=== PATIENT | female | born 1965 | race Caucasian/White ===

== ENCOUNTER 2016-07-24 09:38 | Emergency (ER) ==
[2016-07-24 09:48] VITALS: BP 132/74
--- NOTE | 2016-07-24 10:25 | PROVIDER DOCUMENTATION ---
HPI-EENT General - General Chief Complaint: Cold Symptoms Stated Complaint: N/V/D Time Seen by Provider: 07/24/16 10:02 Source: patient Allergies/Adverse Reactions: Patient Allergies Allergy/AdvReac Type Severity Reaction Status Date / Time Penicillins Allergy Mild RASH Verified 07/24/16 10:19 Home Medications: Home Medication List Medication Instructions Recorded Confirmed Last Taken Type Albuterol Sulfate [Proair Hfa] 8.5 gm IH DAILY 05/11/12 07/24/16 08/06/14 19:00 History LISINOpril [Prinivil] 10 mg PO DAILY 05/11/12 07/24/16 03/19/16 06:00 History Levothyroxine [Synthroid] 125 microgm PO DAILY 05/11/12 07/24/16 03/19/16 06:00 History Tiotropium [place] Inhaler 1 cap IH DAILY 12/11/13 07/24/16 03/19/16 06:00 History [Spiriva] Metformin [Glucophage] 500 mg PO BID CC 02/22/14 07/24/16 03/19/16 06:00 History SIMVAstatin [Zocor] 40 mg PO QHS 02/22/14 07/24/16 03/18/16 History Fluticasone/Salmeterol [Advair 1 each IH DAILY 08/08/14 07/24/16 03/19/16 06:00 History 500-50 Diskus] Roflumilast [Daliresp] 500 microgm PO DAILY 10/25/14 07/24/16 03/19/16 06:00 History Tamoxifen [Nolvadex] 20 mg PO DAILY 10/25/14 07/24/16 03/19/16 06:00 History Docusate Sodium [Colace] 100 mg PO BID #60 capsule 10/31/14 07/24/16 03/19/16 06 :00 Rx Ciprofloxacin HCl [Cipro] 500 mg PO BID #20 tablet 03/19/16 07/24/16 Unknown Rx Hydrocodone/Acetaminophen [Corry 1 each PO TID #10 tablet 03/19/16 07/24/16 Unknown Rx 5-325 Tablet] Azithromycin [Zithromax Z-Joshua] 250 mg PO DIRECTED #1 pkg 07/24/16 Unknown Rx Hydrocortisone 1% Cream 1 applicatn TOP BID #1 tube 07/24/16 Unknown Rx Methylprednisolone [Medrol Dosepak] 4 mg PO DIRECTED #1 package 07/24/16 Unknown Rx - History of Present Illness-EENT General Nature of Presenting Problem: This pt presents to ED with c/o nasal congestion, chest tightness, body aches, and non-productive cough x3 days. Also reports she has vomited x1, and had diarrhea 3 episodes of diarrhea over the course of the 3 days. Denies any abdominal pain, fever. She is currently not nauseated. No fever or chills reported. No other issues or complaints. Pt is also complaining of a rash on her left side and leg that has been present for 1-2 weeks. No other issues or complaints. EENT Location: reports: facial Quality of Pain: reports: aching Severity: reports: mild Onset/Duration: reports: 3 days ago Timing: reports: still present Prearrival Treatment: Initiated no prearrival treatment Associated Symptoms: reports: cough, nasal congestion/drainage, sinus infection Similar Symptoms Previously?: No Recently seen or treated by another doctor?: No Review of Systems - Adult - REVIEW OF SYSTEMS - ADULT Constitutional: reports: fatique. denies: chills, fever Eyes: reports: no symptoms reported. denies: discharge, dry eyes Ears, Nose, Mouth & Throat: reports: sinus problem, throat pain. denies: ear discharge, ear pain Cardiovascular: reports: no symptoms reported. denies: chest pain, edema Respiratory: reports: cough. denies: chronic cough, pleurisy, shortness of breath Gastrointestinal: reports: no symptoms reported. denies: abdominal pain, hematemesis Genitourinary: reports: no symptoms reported. denies: dysuria, discharge Musculoskeletal: reports: no symptoms reported. denies: bone pain, back pain Integumentary: reports: rash. denies: hives, hair loss, itching Neurological: reports: no symptoms reported. denies: ataxia, dizziness/vertigo Psychiatric: reports: no symptoms reported. denies: anxiety, anti-depressant use Endocrine: reports: no symptoms reported Hematologic/Lymphatic: reports: no symptoms reported Allergic/Immunologic: reports: no symptoms reported All Other Systems: Reviewed and Negative Past History - Adult - PAST MEDICAL HISTORY-ADULT Review of Records: reports: Old Records Reviewed, Nursing Assessment Review, Medications Reviewed, Social history reviewed & non-contributory. Major Childhood Illnesses: reports: denies history Cardiovascular: reports: denies history Respiratory: reports: bronchitis, COPD Gastrointestinal: reports: denies history Obstetrical/Gynecological: reports: other (breast ca/left mastectomy 09/on tamoxifen) Genitourinary: reports: denies history Musculoskeletal: reports: denies history Neurological: reports: denies history Psychiatric: reports: denies history Endocrine/Immune: reports: denies history Other Conditions: reports: denies history - PRIOR SURGERIES/PROCEDURES Surgical/Procedure History: reports: other (left mastectomy) - PRIOR HOSPITALIZATIONS Prior Hospitalizations: reports: none - IMMUNIZATION STATUS Childhood Immunizations: See Nurse Assessment Flu Vaccine: See Nurse Assessment - FAMILY HISTORY Family History: reviewed, not pertinent, diabetes Physical Exam- EENT - Physical Exam EENT Initial Vital Signs Reviewed: Yes General Appearance: appears well, alert, no apparent distress Eye Exam: bilateral eye: normal inspection, PERRL, EOMI Ear Exam: bilateral ear: auricle normal, canal normal, TM normal Nasal Exam: normal inspection Throat Exam: normal mouth inspection, pharynx normal. negative: pharynx tenderness, tonsillar exudate, tonsillar swelling Neck: non-tender, full range of motion, supple, normal inspection. negative: limited range of motion, lymphadenopathy, meningismus Respiratory: chest non-tender, lungs clear, no pleuratic chest pain, no respiratory distress, no accessory muscle use, rhonchi, wheezing (minimal, posterior bases). negative: respiratory distress, decreased breath sounds, accessory muscle use, crackles, rales, stridor, decreased rate, increased rate Cardiovascular: normal peripheral pulses, regular rate, rhythm, no edema, no gallop, no JVD, no murmur Abdominal Exam: normal bowel sounds, non tender, soft Back Exam: normal inspection, no CVA tenderness, no vertebral tenderness Extremity: normal range of motion, non-tender, normal gait, normal inspection Integumentary: normal turgor, warm/dry, rash (mild, left side and leg; appears to be) Neurologic: grossly normal, no motor/sensory deficits Psych/Mental Status: normal mood/affect, normal thought content, normal thought process, oriented x 3 Progress - PLAN OF CARE/RESULTS Progress/Plan/Lab Results: Orders Category Date Time Status CHEST-2 VIEWS [RAD] Stat Exams 03/10/17 10:28 Taken Flu Swab [INFLUENZA SCREEN A/B] Stat Lab 07/24/16 09:51 Completed Albuterol 2.5MG/Ipratrop 0.5MG [Duoneb (A & A)] Med 07/24/16 10:28 Discontinued 3 ml INH NOW ONE Aerosol Treatments Routine Oth 07/24/16 10:28 Completed Aerosol Treatments Stat Oth 07/24/16 10:28 Completed Vital Signs Temp Pulse Resp BP Pulse Ox 07/24/16 10:52 73 16 93 L 07/24/16 09:45 97.7 F 74 18 132/74 99 Penicillins Allergy (Mild, Verified 07/24/16 10:19) RASH Albuterol Sulfate [Proair Hfa] 8.5 gm IH DAILY 05/11/12 LISINOpril [Prinivil] 10 mg PO DAILY 05/11/12 Levothyroxine [Synthroid] 125 microgm PO DAILY 05/11/12 Tiotropium [place] Inhaler [Spiriva] 1 cap IH DAILY 12/11/13 Metformin [Glucophage] 500 mg PO BID CC 02/22/14 SIMVAstatin [Zocor] 40 mg PO QHS 02/22/14 Fluticasone/Salmeterol [Advair 500-50 Diskus] 1 each IH DAILY 08/08/14 Roflumilast [Daliresp] 500 microgm PO DAILY 10/25/14 Tamoxifen [Nolvadex] 20 mg PO DAILY 10/25/14 Docusate Sodium [Colace] 100 mg PO BID #60 capsule 10/31/14 Ciprofloxacin HCl [Cipro] 500 mg PO BID #20 tablet 03/19/16 Hydrocodone/Acetaminophen [Corry 5-325 Tablet] 1 each PO TID #10 tablet Departure - Departure Time of Disposition Order: 11:13 DIAGNOSIS: Bronchitis, Rash and nonspecific skin eruption Disposition: HOME 01 Certified Medical Emergency: Urgent Condition: Good Additional Instructions: Take medication as prescribed. Follow up with your primary care provider and paster supervisor. ED Follow Up Instructions: You have been treated by a care provider in the Emergency Department. These instructions are being provided to you so you can have an understanding of how to care for yourself upon discharge. Upon discharge from the Emergency Department, you are responsible for making arrangements for follow-up care by a physician of your choice. Take all prescribed medications as directed. Return to the Emergency Department immediately for any new or worsening symptoms. You may call the Physician Referral phone number at [phone] to obtain a list of Physicians who are taking new patients. Prescriptions: Hydrocortisone 1% Cream 1 applicatn TOP BID #1 tube Methylprednisolone [Medrol Dosepak] 4 mg PO DIRECTED #1 package Azithromycin [Zithromax Z-Joshua] 250 mg PO DIRECTED #1 pkg Attestation - Physician/ JACQUES Attestation Patient care was provided by Advanced Practice Provider:: Yes Advanced Practice Provider:: Baldemar Xiao Advanced Practice Provider documentation review:: The Mid-level provider documentation, treatment plan and medical decision making was reviewed by the physician who agrees with all treatment and medical decision making by the MLP.
[2016-07-24] MEDS ORDERED: DUONEB (A & A) INH ONE (10:28)
--- NOTE | 2016-07-24 11:21 | Diag Imaging Result Document ---
PROCEDURE NAME: CHEST-2 VIEWS - 07/24/2016 TWO VIEWS OF THE CHEST: FINDINGS: There are surgical clips over the left chest. The appearance of the chest has not changed significantly since 08/07/2014. No focal pulmonary opacities are present. IMPRESSION: Stable chest.
== END 2016-07-24 11:30 | disposition home or self-care (01) ==
LOC: ED 09:38
DX: J40 Bronchitis, not specified as acute or chronic (principal); R21 Rash and other nonspecific skin eruption; R09.81 Nasal congestion; R07.89 Other chest pain; R05 Cough; R11.10 Vomiting, unspecified; R19.7 Diarrhea, unspecified; R53.83 Other fatigue; J02.9 Acute pharyngitis, unspecified; R52 Pain, unspecified; R06.2 Wheezing; J44.9 Chronic obstructive pulmonary disease, unspecified; Z79.899 Other long term (current) drug therapy; Z85.3 Personal history of malignant neoplasm of breast; Z90.12 Acquired absence of left breast and nipple
CPT/HCPCS: 71020; 87804; 94640; 99283

== ENCOUNTER 2018-06-06 10:10 | Inpatient (IN) ==
[2018-06-06] MEDS ORDERED: SOLU-MEDROL IV ONE (10:57)
[2018-06-06] MEDS ORDERED: ROCEPHIN 1 GM in NS 50 ML IV ONE (10:57)
[2018-06-06] MEDS: DUONEB (A & A) INH PRN ×3 (11:00→12:47)
--- NOTE | 2018-06-06 11:35 | Diag Imaging Result Doc PS360 ---
EXAM: CHEST-PORTABLE HISTORY: cough TECHNIQUE: Portable chest COMPARISON: 05/30/2018 FINDINGS: The lungs are well expanded. The heart is not enlarged. The vessels are not distended. There are mild increased markings in the lower lungs. No consolidation. No effusion identified. IMPRESSION: Small basilar infiltrates most pronounced in the medial right lung. Electronically signed by Jose Ocasio 06/06/2018 11:33 AM
[2018-06-06 11:41] LABS: BE 1.3 mmoll (-3.0-3.0); BLOOD TYPE ARTERIAL; HCO3-(ACT) 25.7 mmoll (20.0-26.0); O2(CT) 19.2 mL/dL (15.0-23.0); PCO2(98.6) 36 mmHg (35-45); PO2(98.6) 56 mmHg (60-100); SAMPLE BLOOD; THB 15.5 g/dL (11.5-17.4); pH(98.6) 7.45 (7.35-7.45)
[2018-06-06 11:50] LABS: BASO# 0.08 X1000 (0.0-0.2); BASO% 0.7 % (0.0-0.8); EOS# 0.02 X1000 (0.0-0.7); EOS% 0.2 % (0.0-10.0); HEMATOCRIT 42.8 % (37.0-47.0); HEMOGLOBIN 14.1 g/dL (12.0-16.0); IMM GRAN# 0.04 X1000 (0.0-0.04); IMM GRAN% 0.3 % (0.0-0.5); LYMPH# 3.19 X1000 (1.2-3.4); LYMPH% 27.5 % (20.5-51.1); MCH 30.9 PG (27-31); MCHC 32.9 g/dL (33-37); MCV 93.9 FL (81-99); MONO# 1.64 X1000 (0.11-0.59); MONO% 14.2 % (1.7-9.3); MPV 11.3 FL (7.4-10.4); NEUT# 6.62 X1000 (1.4-6.5); NEUT% 57.1 % (42.2-75.2); PLT 326 X1000 (130-400); RBC 4.56 XMIL (4.2-5.4); RDW 14.2 % (11.5-14.5); WBC 11.59 X1000 (4.8-10.8)
[2018-06-06 11:51] LABS: AGAP 11; ALBUMIN 3.7 g/dL (3.5-5.0); ALKALINE PHOSPHATASE 75 U/L (32-104); BUN 18 mg/dL (8-22); CALCIUM 8.8 mg/dL (8.8-10.2); CHLORIDE 106 mmol/L (98-107); COSMO 281; CREATININE 0.7 mg/dL (0.5-0.9); ESTIMATED GFR > 60; GLUCOSE 68 mg/dL (70-104); GOT 21 U/L (10-30); GPT 14 U/L (10-36); POTASSIUM 3.9 mmol/L (3.5-5.1); SODIUM 141 mmol/L (136-145); TCO2 25 mmol/L (25-35); TOTAL PROTEIN 7.8 g/dL (6.3-8.3)
[2018-06-06 11:52] LABS: ANISOCYTOSIS 1+; LYMPHS 36 % (21-51); MONO 9 % (1-9); SEGS 55 % (42-75)
[2018-06-06 12:08] LABS: O2HB 88.4 % (95.0-99.0)
[2018-06-06 12:12] LABS: MODALITY ROOM AIR
[2018-06-06 12:13] LABS: ALLEN TEST YES
[2018-06-06] MEDS: DUONEB (A & A) INH SCH ×3 (15:52→23:10)
[2018-06-06] MEDS: ZITHROMAX PO SCH (16:55)
[2018-06-06] MEDS: HUMALOG (PARKWAY) SUBQ SCH ×2 (16:57→21:48)
--- NOTE | 2018-06-06 17:20 | HISTORY AND PHYSICAL ---
CHIEF COMPLAINT: Shortness of breath x 1 week. HISTORY OF PRESENT ILLNESS: This is a 52-year-old female with a history of COPD, diabetes mellitus, hypertension, who presents to the emergency room complaining of 1 week of increasing shortness of breath, generalized body aches, chest pain on coughing. She was evaluated by her primary care physician, given Biaxin and steroids with only increasing symptoms. Therefore, she presents for further evaluation. She denied any syncope or dizziness, any palpitations, any fever, any nausea, vomiting, diarrhea, constipation. PAST MEDICAL HISTORY: 1. Left breast cancer, currently on tamoxifen. 2. COPD. 3. Diabetes mellitus. 4. Hyperlipidemia. 5. Hypertension. 6. Obstructive sleep apnea. 7. Hypothyroid. PAST SURGICAL HISTORY: Hysterectomy, left mastectomy, partial hysterectomy and bladder suspension. SOCIAL HISTORY: She smokes a pack a day. She denies alcohol or illicit drug use. ALLERGIES: Penicillin, which causes a rash. HOME MEDICATIONS: A list will be obtained by the nursing staff and restarted as is appropriate. REVIEW OF SYSTEMS: Discussed with the patient with pertinent positives stated in the HPI. She denied any headache, syncope, dizziness, any fever or chills, any palpitations, any hemoptysis, any nausea, vomiting, diarrhea, constipation, black or bloody vomitus or stools, hematuria, dysuria, frequency, urgency. PHYSICAL EXAMINATION: GENERAL: This is a 52-year-old female who is sitting up in the bed in no distress. VITAL SIGNS: Blood pressure is 136/69, with a heart rate of 92, respirations are 22, temperature is 98.1 with O2 sats that are 96% on room air. HEENT: Eyes: Pupils are equal, round, react to light. EOMs are intact. Sclerae are anicteric. Mucous membranes are moist. NECK: Supple, with trachea midline. CARDIOVASCULAR: Regular rate and rhythm. S1 and S2 appreciated. No murmur. No lower extremity edema. Calves are nontender. Peripheral pulses are palpable x 4 extremities. PULMONARY: Breath sounds with wheezes scattered throughout. She does have some rhonchi that only partially clear to cough. CHEST: Chest rises and falls symmetrically with respiration. Chest wall is nontender to palpation. GASTROINTESTINAL: Abdomen is soft, nontender, nondistended, with bowel sounds in all 4 quadrants. GENITOURINARY: She has no CVA nor suprapubic tenderness. SKIN: Warm and dry with no rashes or lesions noted. NEUROLOGIC: She is alert and oriented x 3. LABORATORY: WBC is 11.5, with hemoglobin 14.1, hematocrit 42.8, platelets of 326,000. Sodium 141, potassium 3.9, BUN 18, creatinine 0.7 with a glucose of 68. ABGs: PH is 7.45, with a pCO2 of 36, PO2 of 56 and a bicarb of 25.7. Oxyhemoglobin is 88.4. These are on room air. Chest x-ray revealed basilar infiltrates most pronounced in the medial right lung. ASSESSMENT AND PLAN: 1. Chronic obstructive pulmonary disease, acute exacerbation. 2. Pneumonia. 3. Leukocytosis secondary to #2. 4. Diabetes mellitus. 5. Hyperlipidemia. 6. Hypertension. 7. Hypothyroid. 8. Sleep apnea. 9. History of left breast cancer, on tamoxifen. 10. Hypoxemia. PLAN: The patient has been admitted to the Med/Surg floor, placed on telemetry. We will continue with supplemental oxygen per protocol, giving DuoNebs q.4 hours with q.2 hours p.r.n. with steroids to taper. Blood cultures were drawn in the emergency room. She was given Rocephin. We will continue Rocephin and azithromycin and any further antibiotics will be culture driven. We will identify her home medications and continue these as appropriate. Repeat a CBC and CMP in the morning. We will obtain a TSH. She will be placed on a diabetic diet with fingerstick blood sugars and sliding scale insulin. If the patient wears CPAP or BiPAP, we will encourage her to bring this in for use. For DVT prophylaxis will use Lovenox and GI prophylaxis Prilosec. Further treatments pending hospital course. Dictated by LUIS Gmóez for Gloria Vergara MD This chart was documented by, LUIS Gómez and accurately reflects the services performed, treatment plan and medical decisions as attested by the providers signature Gloria Vergara MD. cc: LUIS Gómez MD
--- NOTE | 2018-06-06 18:02 | HISTORY AND PHYSICAL ---
ADDENDUM TO HISTORY AND PHYSICAL: This patient was seen by me face to face and I fully agree with the assessment and plan of Nurse Practitioner Juliet Elena. This is a 52- year-old female who presented to the emergency department with dyspnea and bilateral wheezing. She has been a chronic tobacco smoker and was found to have diffuse bilateral wheezing that was not responding to the breathing treatments. She has her blood gases done over here that showed PO2 of 56 on room air. She was diagnosed as having acute hypoxemic respiratory failure secondary to acute COPD exacerbation. She also has a chest x-ray done at the emergency room that showed small basilar infiltrates which are more pronounced in the medial right lung. This could be secondary to atelectasis, but we cannot rule out pneumonia at this point. She will therefore be treated with IV antibiotics, including azithromycin and ceftriaxone. She will also get methylprednisolone IV along with albuterol and Atrovent nebulization treatments. She has history of diabetes and therefore we will treat her with lispro insulin as per sliding scale. Furthermore, she has chronic medical conditions including hypothyroidism and dyslipidemia, for which she will take levothyroxine and rosuvastatin as prescribed prior to this admission. We will follow hospital course. cc: Gloria Vergara MD MTDEdvin
[2018-06-06] MEDS: SOLU-MEDROL IV SCH (21:47)
[2018-06-07] MEDS: DUONEB (A & A) INH SCH ×6 (03:34→23:03)
[2018-06-07] MEDS: SOLU-MEDROL IV SCH ×4 (04:27→22:10)
[2018-06-07] MEDS: SYNTHROID PO SCH ×2 (06:13)
[2018-06-07] MEDS: PRILOSEC PO SCH (06:13)
[2018-06-07] MEDS: HUMALOG (PARKWAY) SUBQ SCH (06:14)
[2018-06-07 06:48] LABS: HEMATOCRIT 40.6 % (37.0-47.0); HEMOGLOBIN 13.4 g/dL (12.0-16.0); MCH 30.9 PG (27-31); MCV 93.8 FL (81-99); MPV 11.1 FL (7.4-10.4); RBC 4.33 XMIL (4.2-5.4); RDW 14.2 % (11.5-14.5); WBC 15.96 X1000 (4.8-10.8)
[2018-06-07] MEDS: HUMALOG DOSE (PARKWAY) SUBQ SCH ×4 (07:11→21:44)
[2018-06-07 07:45] LABS: AGAP 14; ALBUMIN 3.7 g/dL (3.5-5.0); ALKALINE PHOSPHATASE 70 U/L (32-104); BUN 17 mg/dL (8-22); CALCIUM 9.3 mg/dL (8.8-10.2); CHLORIDE 105 mmol/L (98-107); COSMO 286; CREATININE 0.7 mg/dL (0.5-0.9); ESTIMATED GFR > 60; GLUCOSE 165 mg/dL (70-104); GOT 12 U/L (10-30); GPT 13 U/L (10-36); POTASSIUM 4.2 mmol/L (3.5-5.1); SODIUM 141 mmol/L (136-145); TCO2 23 mmol/L (25-35); TOTAL BILIRUBIN < 0.15 mg/dL (0.20-1.00); TOTAL PROTEIN 7.3 g/dL (6.3-8.3)
[2018-06-07] MEDS: NOLVADEX PO SCH (08:51)
[2018-06-07] MEDS: REQUIP PO SCH (08:52)
[2018-06-07] MEDS: ZITHROMAX PO SCH (08:52)
[2018-06-07] MEDS: COZAAR PO SCH (08:53)
[2018-06-07] MEDS: DALIRESP PO SCH (08:53)
[2018-06-07] MEDS ORDERED: CRESTOR PO SCH (09:00)
--- NOTE | 2018-06-07 10:24 | PROVIDER DOCUMENTATION ---
This chart was entered by Abena Martinez Scribe, acting as scribe for Diane Sims MD. HPI-Respiratory General - General Chief Complaint: Shortness of Breath Stated Complaint: SOB/CHEST PAIN Time Seen by Provider: 06/06/18 10:46 Source: patient Allergies/Adverse Reactions: Patient Allergies Allergy/AdvReac Type Severity Reaction Status Date / Time Penicillins Allergy Mild RASH Verified 07/07/17 11:47 Home Medications: Home Medication List Medication Instructions Recorded Confirmed Last Taken Type Albuterol Sulfate [Proair Hfa] 8.5 gm IH DAILY 05/11/12 06/06/18 04/07/17 06:00 History Levothyroxine [Synthroid] 125 microgm PO DAILY 05/11/12 06/06/18 04/07/17 06:00 History Metformin [Glucophage] 500 mg PO BID CC 02/22/14 06/06/18 04/07/17 06:00 History Fluticasone/Salmeterol [Advair 1 each IH DAILY 08/08/14 06/06/18 04/07/17 06:00 History 500-50 Diskus] Roflumilast [Daliresp] 500 microgm PO DAILY 10/25/14 06/06/18 04/07/17 06:00 History Tamoxifen [Nolvadex] 20 mg PO DAILY 10/25/14 06/06/18 04/07/17 06:00 History ROSUVAstatin [Crestor] 20 mg PO DAILY 07/07/17 06/06/18 Unknown History Ropinirole [Requip] 5 mg PO DAILY 07/07/17 06/06/18 Unknown History Clarithromycin [Biaxin] 1 tab PO BID 06/06/18 06/06/18 Unknown History Losartan [Cozaar] 25 mg PO DAILY 06/06/18 06/06/18 Unknown History - History of Present Illness-Resp Nature of Presenting Problem: 52yof with hx of COPD, HTN, diabetes, hyperlipidemia, sleep apnea, and thyroid disorder c/o R-sided chest "heaviness" with cough and wheezing since this morning. She reports she is a current smoker, and her last cigarette was this morning. She reports she uses an inhaler, but denies having oxygen or nebulizer at home. She reports she was seen at [place] a week ago for similar symptoms and had an appointment with Dr. Silva on Wednesday. She reports Dr. Silva prescribed antibiotics and steroids given on Wednesday. She denies fever, chills, nausea, vomiting. Quality of Pain: reports: aching Severity in ED: reports: mild Onset/Duration: reports: this morning Timing: reports: still present, intermittent, constant Cough Quality/Degree: reports: mild, dry cough Current Respiratory Medication Therapy: Initiated see nurses note Modifying Factors: improves with: oxygen Associated Symptoms: reports: cough, wheezing Similar Symptoms Previously?: Yes (seen at [place] with similar symptoms last week ) Recently seen or treated by another doctor?: Yes (seen at [place] ED last week and Dr. Silva's office on Wednesday ) Review of Systems - Adult - REVIEW OF SYSTEMS - ADULT Constitutional: denies: chills, fever Eyes: denies: discharge, dry eyes Ears, Nose, Mouth & Throat: denies: ear discharge, ear pain Cardiovascular: reports: chest pain (R-sided). denies: palpitations Respiratory: reports: cough, wheezing Gastrointestinal: denies: abdominal pain, diarrhea, nausea, vomiting Genitourinary: denies: dysuria, hematuria Musculoskeletal: denies: back pain, muscle aches, muscle weakness Integumentary: reports: no symptoms reported Neurological: denies: dizziness/vertigo, headache/migraines Psychiatric: reports: no symptoms reported Endocrine: reports: no symptoms reported Hematologic/Lymphatic: reports: no symptoms reported Allergic/Immunologic: reports: no symptoms reported All Other Systems: Reviewed and Negative Past History - Adult - PAST MEDICAL HISTORY-ADULT Review of Records: reports: Old Records Reviewed, Nursing Assessment Review, Medications Reviewed Major Childhood Illnesses: reports: denies history Cardiovascular: reports: HTN, hyperlipidemia Respiratory: reports: bronchitis, COPD Gastrointestinal: reports: denies history Obstetrical/Gynecological: reports: other (breast ca/left mastectomy 09/on tamoxifen) Genitourinary: reports: denies history Musculoskeletal: reports: denies history Neurological: reports: denies history Psychiatric: reports: denies history Endocrine/Immune: reports: thyroid disorder Other Conditions: reports: denies history - PRIOR SURGERIES/PROCEDURES Surgical/Procedure History: reports: other (left mastectomy) - PRIOR HOSPITALIZATIONS Prior Hospitalizations: reports: none - IMMUNIZATION STATUS Childhood Immunizations: See Nurse Assessment Flu Vaccine: See Nurse Assessment - FAMILY HISTORY Family History: reviewed, not pertinent, diabetes - SOCIAL HISTORY Smoking: cigarettes, less than 1 pack/day Substance Use: denies Living Situation: family Physical Exam-General - PHYSICAL EXAM-ADULT Initial Vital Signs Reviewed: Yes - CONSTITUTIONAL General Appearance: alert, no apparent distress, other (pt coughing during exam) - EYES Eyes: PERRL/EOMI, pink conjunctivae - NECK Neck: non-tender, supple - RESPIRATORY Respiratory: decreased breath sounds, crackles, rales, wheezing, other ( tachypneic) - CARDIOVASCULAR Cardiovascular: regular rate, rhythm, no murmur - MUSCULOSKELETAL Extremity: normal range of motion, non-tender, normal inspection, no pedal edema - SKIN Integumentary: normal color, warm/dry. negative: cyanosis - NEUROLOGIC Neurologic: grossly normal, no motor/sensory deficits - PSYCHIATRIC Psych/Mental Status: normal mood/affect, normal thought content, normal thought process, oriented x 3 Progress - PLAN OF CARE/RESULTS Progress/Plan/Lab Results: Laboratory Results - last 24 hr 06/06/18 06/06/18 06/06/18 11:10 11:10 11:10 WBC 11.59 H RBC 4.56 Hgb 14.1 Hct 42.8 MCV 93.9 MCH 30.9 MCHC 32.9 L RDW Std Deviation 14.2 Plt Count 326 MPV 11.3 H Immature Gran % (Auto) 0.3 Neut % (Auto) 57.1 Lymph % (Auto) 27.5 Leake % (Auto) 14.2 H Eos % (Auto) 0.2 Baso % (Auto) 0.7 Immature Gran # (Auto) 0.04 Neut # (Auto) 6.62 H Lymph # (Auto) 3.19 Leake # (Auto) 1.64 H Eos # (Auto) 0.02 Baso # (Auto) 0.08 Segmented Neutrophils 55 Lymphocytes 36 Monocytes 9 Anisocytosis 1+ Specimen Type Sample Site pH pCO2 pO2 HCO3 Base Excess Oxyhemoglobin ABG O2 Sat (Calculated) ABG O2 Saturation ABG Carboxyhemoglobin ABG Methemoglobin Edilberto Test A-a O2 Difference Total Hemoglobin Lactate Blood Gas Modality FiO2 % Sodium 141 Potassium 3.9 Chloride 106 Carbon Dioxide 25 Anion Gap 11 BUN 18 Creatinine 0.7 Estimated GFR/1.73 m2 > 60 BUN/Creatinine Ratio 26 Glucose 68 L Calculated Osmolality 281 Calcium 8.8 Total Bilirubin 0.20 AST 21 ALT 14 Alkaline Phosphatase 75 Idl-Q-Tyydmdliqel Pept 303 H Total Protein 7.8 Albumin 3.7 Globulin 4.0 Albumin/Globulin Ratio 1.0 TSH 06/06/18 06/06/18 11:10 11:15 WBC RBC Hgb Hct MCV MCH MCHC RDW Std Deviation Plt Count MPV Immature Gran % (Auto) Neut % (Auto) Lymph % (Auto) Leake % (Auto) Eos % (Auto) Baso % (Auto) Immature Gran # (Auto) Neut # (Auto) Lymph # (Auto) Leake # (Auto) Eos # (Auto) Baso # (Auto) Segmented Neutrophils Lymphocytes Monocytes Anisocytosis Specimen Type ARTERIAL Sample Site R RADIAL pH 7.45 pCO2 36 pO2 56 L HCO3 25.7 Base Excess 1.3 Oxyhemoglobin 88.4 L* ABG O2 Sat (Calculated) 19.2 ABG O2 Saturation 93.0 L ABG Carboxyhemoglobin 4.00 H ABG Methemoglobin 1.0 Edilberto Test YES A-a O2 Difference 49.0 Total Hemoglobin 15.5 Lactate 1.70 Blood Gas Modality ROOM AIR FiO2 % 21.0 Sodium Potassium Chloride Carbon Dioxide Anion Gap BUN Creatinine Estimated GFR/1.73 m2 BUN/Creatinine Ratio Glucose Calculated Osmolality Calcium Total Bilirubin AST ALT Alkaline Phosphatase Ehp-R-Thezqqaaktv Pept Total Protein Albumin Globulin Albumin/Globulin Ratio TSH 7.42 H Orders Category Date Time Status Admit - [facility] Routine AdmDCTranf 06/06/18 13:42 Active Activity - Up with Assistance ORDERED Care 06/06/18 13:42 Active FSBS/Accucheck Result AC + HS Care 06/06/18 13:42 Active Intake and Output-Strict ORDERED Care 06/06/18 13:42 Active Saline Loc NOW Care 06/06/18 10:58 Completed Update & Confirm Home Medicati ROUTINE Care 06/06/18 13:44 Active Vital Signs Order Q 8-HR ASSESS Care 06/06/18 13:42 Active Z-Document. for Tele Applied ORDERED Care 06/06/18 13:43 Completed Diabetic Diet Diet 06/06/18 13:43 Active CHEST-PORTABLE [RAD] Stat Exams 06/06/18 10:58 Completed ABG [RESP] Routine Lab 06/06/18 11:15 Completed BLOOD CULTURE [BLDCUL] Stat Lab 06/06/18 11:10 Results CBC WITH DIFF [HEME] Stat Lab 06/06/18 11:10 Completed CBC WITH NO DIFF [HEME] Routine Lab 06/07/18 06:22 Completed COMPREHENSIVE METABOLIC PANEL [CHEM] Routine Lab 06/07/18 06:22 Completed COMPREHENSIVE METABOLIC PANEL [CHEM] Stat Lab 06/06/18 11:10 Completed PRO B-NATRIURETIC PEPTIDE Stat Lab 06/06/18 11:10 Completed TSH Routine Lab 06/06/18 11:10 Completed Albuterol 2.5MG/Ipratrop 0.5MG [Duoneb (A & A)] Med 06/06/18 10:57 Active 3 ml INH Q2H PRN PRN Albuterol 2.5MG/Ipratrop 0.5MG [Duoneb (A & A)] Med 06/06/18 15:30 Active 3 ml INH RTQ4H CefTRIAXONE [Rocephin] 1 gm Med 06/06/18 10:57 Discontinued 0.9% Sodium Chloride Inj [Ns] 50 ml IV NOW Insulin Lispro (Sartell) [Humalog (Sartell)] Med 06/06/18 16:00 Discontinued See Protocol SUBQ 0700,1100,1600,2100 Methylprednisolone Sod Succ [Solu-Medrol] Med 06/06/18 10:57 Discontinued 125 mg IV NOW ONE Aerosol Treatments Routine Ot 06/06/18 10:59 Completed Aerosol Treatments Routine Ot 06/06/18 13:44 Completed Aerosol Treatments Stat Ot 06/06/18 10:59 Completed Incentive Spirometer RTQ4H Ot 06/06/18 15:30 Completed Incentive Spirometer RTQ4H Ot 06/06/18 19:30 Completed Incentive Spirometer RTQ4H Ot 06/06/18 23:30 Completed Incentive Spirometer RTQ4H Ot 06/07/18 03:30 Completed Incentive Spirometer RTQ4H Ot 06/07/18 07:30 Completed Incentive Spirometer RTQ4H Ot 06/07/18 11:30 Completed Incentive Spirometer RTQ4H Ot 06/07/18 15:30 Completed Incentive Spirometer RTQ4H Ot 06/07/18 19:30 Completed Incentive Spirometer RTQ4H Ot 06/07/18 23:30 Completed Incentive Spirometer RTQ4H Ot 06/08/18 03:30 Completed Oxygen Device Routine Ot 06/06/18 13:42 Completed Pulse Oximetry Stat Oth 06/06/18 10:58 Completed Telemetry [OM.EQ] Routine Oth 06/06/18 13:42 Active Transfer/Admit Order [TRANSFER] Routine Transfer 06/06/18 14:46 Completed Result Diagrams: 06/07/18 06:22 06/07/18 06:22 - REASSESSMENT Reassessment #1 Time Reassessed: 11:50 Status: unchanged Reassessment #2 Time Reassessed: 12:00 Status: unchanged (pt does not feel any improvement after breathing treatment, pt wheezing) Reassessment #3 Time Reassessed: 13:24 Status: unchanged (pt does not feel any improvement after third breathing treatment, pt is still wheezing) - XRAY 1 XRAY Study: Chest Impression: Abnormal (FINDINGS: The lungs are well expanded. The heart is not enlarged. The vessels are not distended. There are mild increased markings in the lower lungs. No consolidation. No effusion identified. IMPRESSION: Small basilar infiltrates most pronounced in the medial right lung.) - CONSULTS/PCP/HOSPITALIST Notification #1 *Consult/PCP/Hospitalist*: Dr. Vergara Time Discussed: 13:27 Consult Disposition: Admit Departure - Departure Date of Disposition Decision: 06/06/17 Time of Disposition Decision: 15:17 DIAGNOSIS: COPD exacerbation, Tobacco abuse disorder Disposition: HOME 01 Certified Medical Emergency: Emergent Condition: Stable - Critical Care Note This patient required my direct & personal management of CC.: No Attestation - Physician/ JACQUES Attestation Patient care was provided by Advanced Practice Provider:: No The physician spent face to face time with patient:: Yes Advanced Practice Provider documentation review:: Supervising physician onsite and consulted in the evaluation and care of this patient. The physician did have a face to face encounter with the patient. This chart was documented by the indicated scribe, (Abena Martinez Scribe) and accurately reflects the services I performed and decisions made by me, Diane Sims MD, as attested by the provider's signature.
[2018-06-07] MEDS: ROCEPHIN 1 GM in NS 50 ML IV SCH (11:58)
--- NOTE | 2018-06-07 21:24 | PROGRESS NOTE ---
DATE: 06/07/2018 SUBJECTIVE: Patient reports feeling fine, denies any fever or chills report breathing much better in comparing with yesterday. OBJECTIVE: Vitals: Temperature 97.4 degrees, heart rate 92, respiratory 19, blood pressure 128/62, O2 saturation 98% on room air. General: This is a 52-year-old female lying in bed in no acute distress. Cardiovascular: S1, S2 heard. No murmurs, gallops, or rubs. Regular rate and rhythm. Respiratory: Wheezing all over both pulmonary kwon, patient not using any accessory muscles or having work of breathing. Abdomen: Soft, nontender to palpation, bowel sounds present. No organomegaly. Extremities: No clubbing, cyanosis, or edema. Peripheral pulses present in both legs. Neurologic: The patient is alert and oriented x3, moves 4 extremities. LABORATORY DATA: Reviewed. ASSESSMENT AND PLAN: 1. Acute respiratory failure secondary to chronic obstructive pulmonary disease exacerbation. Will continue with breathing treatments in this case is DuoNeb every 4 hours as scheduled and also IV steroids as well. Patient strongly recommended to stop smoking, patient acknowledged understanding. 2. Community-acquired pneumonia. That is probably why this patient has chronic obstructive pulmonary disease, will continue with Rocephin and azithromycin, will continue with the same medication. 3. Diabetes mellitus type 2, will continue with sliding scale insulin and Accu-Chek before meals and also bedtime. 4. Hypertension, blood pressure is under control. Will continue with the same management. 5. Sleep apnea aware. 6. Disposition. We are going to monitor this patient closely. If this patient continues to improve tomorrow she can be discharged. cc: Marcelino Bird MD
[2018-06-08] MEDS: DUONEB (A & A) INH SCH ×3 (02:45→11:30)
[2018-06-08] MEDS: SOLU-MEDROL IV SCH ×2 (04:21→11:34)
[2018-06-08 05:56] VITALS: BP 138/70
[2018-06-08] MEDS: HUMALOG DOSE (PARKWAY) SUBQ SCH ×2 (06:27→10:40)
[2018-06-08] MEDS: PRILOSEC PO SCH (06:28)
[2018-06-08] MEDS: SYNTHROID PO SCH ×2 (06:28)
[2018-06-08 07:06] LABS: HEMATOCRIT 41.5 % (37.0-47.0); HEMOGLOBIN 13.7 g/dL (12.0-16.0); MCH 31.1 PG (27-31); MCV 94.1 FL (81-99); MPV 11.2 FL (7.4-10.4); RBC 4.41 XMIL (4.2-5.4); RDW 14.4 % (11.5-14.5)
[2018-06-08 07:07] LABS: WBC 20.23 X1000 (4.8-10.8)
[2018-06-08 07:18] LABS: AGAP 11; BUN 28 mg/dL (8-22); CALCIUM 9.5 mg/dL (8.8-10.2); CHLORIDE 104 mmol/L (98-107); COSMO 289; CREATININE 0.9 mg/dL (0.5-0.9); ESTIMATED GFR > 60; GLUCOSE 168 mg/dL (70-104); POTASSIUM 5.1 mmol/L (3.5-5.1); SODIUM 140 mmol/L (136-145); TCO2 25 mmol/L (25-35)
[2018-06-08] MEDS: REQUIP PO SCH (08:12)
[2018-06-08] MEDS: NOLVADEX PO SCH (08:13)
[2018-06-08] MEDS: DALIRESP PO SCH (08:13)
[2018-06-08] MEDS: ZITHROMAX PO SCH (08:13)
[2018-06-08] MEDS: COZAAR PO SCH (08:13)
[2018-06-08] MEDS: ROCEPHIN 1 GM in NS 50 ML IV SCH (11:34)
--- NOTE | 2018-06-08 19:15 | DISCHARGE SUMMARY ---
ADMISSION DATE: 06/06/2018 DISCHARGE DATE: 06/08/2018 DIAGNOSES: 1. Chronic obstructive pulmonary disease acute exacerbation. 2. Acute hypoxemic respiratory failure, resolved. 3. Diabetes mellitus. 4. Hypertension. 5. Hypothyroid. 6. History of sleep apnea. 7. Community-acquired pneumonia. DIAGNOSTICS: 1. Chest x-ray revealed small basilar infiltrates most pronounced in the right lung. 2. Blood cultures revealed no growth after 48 hours. HOSPITAL COURSE: The patient presented to the ER complaining of shortness of breath x1 week despite her home medications. She was found to have pneumonia and also to be in acute hypoxic respiratory failure having a PO2 of 56 room air on ABG. She was admitted, given supplemental oxygen as needed. She was treated with DuoNeb, steroids to taper. We treated her with Rocephin and azithromycin and she has been transitioned to Levaquin p.o. for discharge. DISCHARGE PHYSICAL EXAMINATION: Cardiovascular: Regular rate and rhythm. S1, S2 appreciated. Pulmonary: She does have some scattered wheezes, but they did clear after breathing treatments. She has no increased work of breathing noted. Gastrointestinal: Abdomen is soft, nontender, nondistended. Bowel sounds in all 4 quadrants. Neurologic: She is alert and oriented x3. VITAL SIGNS: Blood pressure is 138/70, with a heart rate of 87, respirations are 20, temperature is 97.8 degrees oral with O2 saturations 99%on nasal cannula. 94-96% on room air. DISCHARGE MEDICATIONS: Prilosec 40 mg p.o. daily, DuoNeb q.4 hours p.r.n. wheezing, amoxapine 20 mg p.o. daily, Crestor 20 mg p.o. daily, Requip 5 mg p.o. daily, metformin 500 mg p.o. b.i.d., Cozaar 25 mg p.o. daily, levothyroxine 125 mcg daily. Albuterol inhaler 1 puff as needed for wheezing, Advair 500/50, one inhalation daily. FOLLOW-UP: She is to follow up with her primary care physician, Dr. Pete Silva, an appointment was made for June 15 at 1:15 p.m. She has been instructed to call to be seen sooner or return to the ER for any syncope, dizziness, chest pain, palpitations, increasing shortness of breath, temperature greater than 101 or for any questions or concerns that she may have. DISPOSITION: She is being discharged home in stable condition with family members. TIME SPENT: This is a greater than 30 minute discharge. Dictated by LUIS Gómez for Marcelino Bird MD This chart was documented by, LUIS Gómez and accurately reflects the services performed, treatment plan and medical decisions as attested by the providers signature Marcelino Bird MD. cc: LUIS Gómez MD Joel Alonzo Powell, Jr, MD
[2018-06-08] MEDS ORDERED: CRESTOR PO SCH (21:00)
== END 2018-06-08 15:21 | disposition home or self-care (01) | DRG 193 ==
LOC: P.ED 10:10 → P.MEDSURG 15:17 → SUATTDRO 15:17
PROVIDERS: ATTEND Internal Medicine
CPT/HCPCS: 71010; 71045; 80048; 80053; 82805; 82948; 83880; 84443; 85025; 85027; 87040; 94640; 94761; 94799; 96365; 96375; 99285; A9270; J0696; J1815; J2920; J2930; S0187; XXXXX

== ENCOUNTER 2019-02-19 17:26 | Inpatient (IN) ==
[2019-02-19 18:05] LABS: BASO# 0.06 X1000 (0.0-0.2); BASO% 0.7 % (0.0-0.8); EOS# 0.06 X1000 (0.0-0.7); EOS% 0.7 % (0.0-10.0); HEMATOCRIT 45.6 % (37.0-47.0); IMM GRAN# 0.01 X1000 (0.0-0.04); IMM GRAN% 0.1 % (0.0-0.5); LYMPH# 1.94 X1000 (1.2-3.4); LYMPH% 22.9 % (20.5-51.1); MCH 31.3 PG (27-31); MCHC 32.9 g/dL (33-37); MONO# 1.22 X1000 (0.11-0.59); MONO% 14.4 % (1.7-9.3); MPV 11.5 FL (7.4-10.4); NEUT# 5.19 X1000 (1.4-6.5); NEUT% 61.2 % (42.2-75.2); PLT 233 X1000 (130-400); RDW 14.8 % (11.5-14.5); WBC 8.48 X1000 (4.8-10.8)
--- NOTE | 2019-02-19 18:20 | Diag Imaging Result Doc PS360 ---
CHEST-2 VIEWS - 02/19/2019 INDICATION: sob copd COMPARISON: 06/06/2018 FINDINGS: The lungs are clear. Heart size is normal. No pneumothorax or pleural effusion. There are left-sided mastectomy changes stable from prior. IMPRESSION: Negative exam. Electronically signed by Pete Thomas 02/19/2019 6:17 PM
[2019-02-19 18:21] LABS: AGAP 13; ALBUMIN 4.4 g/dL (3.5-5.0); ALKALINE PHOSPHATASE 89 U/L (32-104); BUN 15 mg/dL (8-22); CALCIUM 9.5 mg/dL (8.8-10.2); CHLORIDE 105 mmol/L (98-107); CK PROFILE 138 U/L (24-173); COSMO 286; CREATININE 0.9 mg/dL (0.5-0.9); ESTIMATED GFR > 60; GLUCOSE 100 mg/dL (70-104); GOT 16 U/L (10-30); GPT 11 U/L (10-36); INR 0.9; POTASSIUM 4.4 mmol/L (3.5-5.1); PROTIME 12.6 Seconds (11.0-16.0); SODIUM 143 mmol/L (136-145); TCO2 25 mmol/L (25-35); TOTAL PROTEIN 7.6 g/dL (6.3-8.3)
[2019-02-19 18:22] LABS: PTT 23.9 Seconds (22.3-41.8)
[2019-02-19 18:25] LABS: BE 1.5 mmoll (-3.0-3.0); BLOOD TYPE ARTERIAL; HCO3-(ACT) 25.8 mmoll (20.0-26.0); METHB 0.7 % (0.0-1.5); O2(CT) 19.1 mL/dL (15.0-23.0); PCO2(98.6) 35 mmHg (35-45); PO2(98.6) 54 mmHg (60-100); SAMPLE BLOOD; SAO2 92.3 % (95.0-100.0); THB 15.5 g/dL (11.5-17.4); pH(98.6) 7.46 (7.35-7.45)
[2019-02-19] MEDS ORDERED: DUONEB (A & A) INH ONE (18:27)
[2019-02-19] MEDS ORDERED: SOLU-MEDROL IV ONE (18:27)
[2019-02-19 18:29] LABS: MODALITY ROOM AIR; O2HB 87.9 % (95.0-99.0)
[2019-02-19 18:30] LABS: ALLEN TEST YES
--- NOTE | 2019-02-19 19:02 | EKG Report ---
Test Performed on : 02/19/2019 5:46:43 PM Test Reason : sob chest tightness copd Blood Pressure : / mmHG Vent. Rate : 092 BPM Atrial Rate : 092 BPM P-R Int : 110 ms QRS Dur : 078 ms QT Int : 382 ms P-R-T Axes : 054 046 060 degrees QTc Int : 472 ms Sinus rhythm. with short [place] Nonspecific T wave abnormality Abnormal ECG When compared with ECG of 07-APR-2017 11:36, Non-specific change in ST segment in Lateral leads Nonspecific T wave abnormality now evident in Lateral leads Unconfirmed Result
--- NOTE | 2019-02-19 19:06 | PROVIDER DOCUMENTATION ---
This chart was entered by Zarina Oviedo Scribe, acting as scribe for Benito Chaudhry MD. HPI-Respiratory General - General Source: patient - History of Present Illness-Resp Severity in ED: reports: mild Onset/Duration: reports: 4 days ago Timing: reports: still present Context: reports: other (was around dust) Cough Quality/Degree: reports: moderate, dry cough Episode Frequency: rare episodes (1 x a yr) Current Respiratory Medication Therapy: Initiated albuterol/atrovent inhale, Initiated singulair Modifying Factors: improves with: exertion Associated Symptoms: reports: cough, fever/chills (chills), shortness of breath, wheezing <Benito Chaudhry - Last Filed: 02/19/19 19:05> <Joseluis Higuera - Last Filed: 02/19/19 21:26> - General Chief Complaint: Shortness of Breath Stated Complaint: COPD / SOB Time Seen by Provider: 02/19/19 18:20 Allergies/Adverse Reactions: Patient Allergies Allergy/AdvReac Type Severity Reaction Status Date / Time Penicillins Allergy Mild RASH Verified 02/19/19 18:16 Home Medications: Home Medication List Medication Instructions Recorded Confirmed Last Taken Type Fluticasone/Salmeterol [Advair 1 each IH DAILY 08/08/14 02/19/19 04/07/17 06:00 History 500-50 Diskus] Roflumilast [Daliresp] 500 microgm PO HS 10/25/14 02/19/19 04/07/17 06:00 History Losartan [Cozaar] 50 mg PO DAILY 06/06/18 02/19/19 Unknown History Albuterol 2.5MG/Ipratrop 0.5MG 3 ml INH Q4H PRN PRN #60 neb 06/08/18 02/19/19 Unknown Rx [Duoneb (A & A)] Levothyroxine Sodium 1 tab PO DAILY 02/19/19 02/19/19 Unknown History Lovastatin 40 mg PO DAILY 02/19/19 02/19/19 Unknown History Montelukast Sodium 10 mg PO DAILY 02/19/19 02/19/19 Unknown History Ropinirole HCl 1 tab PO HS 02/19/19 02/19/19 Unknown History - History of Present Illness-Resp Nature of Presenting Problem: 53 yowf c/o sob, cough, wheezing, hoarse, night sweats, nocturia, and chills. pt got into dust on wednesday and symptoms started . pt has had 3 breathing tx today w/some relief. pt has hx of copd, HTN, hypothyroid, pneumonia, aDM type 2, and asthma. pt sts she becomes winded easily when walking 3 steps to bedroom in her camper. pt smokes 1/2 ppd, used to smoke 1.5 ppd. pt sts these same symptoms happen 1 x a yr. denies abd pain, nvd, and fever. pt has rx in room. (Benito Chaudhry) Review of Systems - Adult - REVIEW OF SYSTEMS - ADULT Constitutional: reports: see HPI, chills, night sweats. denies: fever, fatique Eyes: reports: no symptoms reported Ears, Nose, Mouth & Throat: reports: see HPI, hoarseness. denies: ear discharge, ear pain, hearing loss Cardiovascular: reports: no symptoms reported Respiratory: reports: see HPI, cough, dyspnea on exertion, shortness of breath, wheezing. denies: excessive sputum production, hemoptysis, pleurisy Gastrointestinal: reports: no symptoms reported. denies: abdominal pain, diarrhea, nausea, vomiting Genitourinary: reports: see HPI, other (nocturia). denies: dysuria, discharge, frequency Musculoskeletal: reports: no symptoms reported Integumentary: reports: no symptoms reported Neurological: reports: no symptoms reported Psychiatric: reports: no symptoms reported Endocrine: reports: no symptoms reported Hematologic/Lymphatic: reports: no symptoms reported Allergic/Immunologic: reports: no symptoms reported All Other Systems: Reviewed and Negative <Benito Chaudhry - Last Filed: 02/19/19 19:05> Past History - Adult - PAST MEDICAL HISTORY-ADULT Review of Records: reports: Nursing Assessment Review, Medications Reviewed, Social history reviewed & non-contributory. Major Childhood Illnesses: reports: denies history Cardiovascular: reports: HTN, hyperlipidemia Respiratory: reports: asthma, bronchitis, COPD, pneumonia Gastrointestinal: reports: denies history Obstetrical/Gynecological: reports: other (breast ca/left mastectomy /on tamoxifen) Genitourinary: reports: denies history Musculoskeletal: reports: denies history Neurological: reports: denies history Psychiatric: reports: denies history Endocrine/Immune: reports: thyroid disorder Other Conditions: reports: denies history - PRIOR SURGERIES/PROCEDURES Surgical/Procedure History: reports: hysterectomy (partial), breast, other - PRIOR HOSPITALIZATIONS Prior Hospitalizations: reports: none - IMMUNIZATION STATUS Childhood Immunizations: See Nurse Assessment Flu Vaccine: See Nurse Assessment - FAMILY HISTORY Family History: reviewed, not pertinent, diabetes - SOCIAL HISTORY Smoking: cigarettes, less than 1 pack/day Provider spent 3-5 mins advising pt. on dangers of tobacco.: Discussed manners to quit use, and f/u contacts for add'l counseling. Substance Use: none/never <Benito Chaudhry - Last Filed: 02/19/19 19:05> Physical Exam-General - PHYSICAL EXAM-ADULT Initial Vital Signs Reviewed: Yes - CONSTITUTIONAL General Appearance: alert, no apparent distress. negative: cachetic, lethargic, slow to respond - EYES Eyes: PERRL/EOMI, pink conjunctivae - HEAD, EARS, NOSE, MOUTH & THROAT HENMT: normocephalic/atraumatic, moist mucous membranes, other (uvula minimal swelling). negative: normal ENT inspection, angioedema, pharyngeal erythema, tonsillar exudate - NECK Neck: non-tender, full range of motion, supple, normal inspection - RESPIRATORY Respiratory: chest non-tender, normal breath sounds, no pleuratic chest pain, no respiratory distress, no accessory muscle use, wheezing (bilat coarse exp wheezes diffuse), other (93-96 sat in room). negative: lungs clear, decreased breath sounds, rales, rhonchi, stridor - CARDIOVASCULAR Cardiovascular: normal peripheral pulses, regular rate, rhythm - GASTROINTESTINAL (ABDOMEN) Abdominal Exam: normal bowel sounds, non tender, soft - LYMPHATIC Lymphatic: no adenopathy - MUSCULOSKELETAL Back Exam: normal inspection, no CVA tenderness, no vertebral tenderness Extremity: normal range of motion, non-tender, normal inspection, no pedal edema , normal capillary refill. negative: pulse deficit, pedal edema, slow capillary refill, swelling Peripheral Pulses: radial (R): 2+, radial (L): 2+ - SKIN Integumentary: normal color, normal turgor, warm/dry. negative: diaphoresis - NEUROLOGIC Neurologic: grossly normal, no motor/sensory deficits - PSYCHIATRIC Psych/Mental Status: normal mood/affect, normal thought content, normal thought process, oriented x 3 <Benito Chaudhry - Last Filed: 02/19/19 19:05> Progress - PLAN OF CARE/RESULTS Result Diagrams: 02/19/19 17:45 02/19/19 17:45 - EKG 1 Time of EKG reading by physician:: 17:46 EKG Read and Signed by:: Benito Chaudhry EKG Interpretation (*Must complete 3 of following elements*): Abnormal Rate: 92 Rhythm: SR w/short [place]: normal QRS: normal [place] Interval: shortened (110) ST Wave: non-specific ST changes (Nonspecific T wave abnormality) - XRAY 1 XRAY Study: Chest Impression: Normal, See EMR Report (CHEST-2 VIEWS - 02/19/2019 INDICATION: sob copd COMPARISON: 06/06/2018 FINDINGS: The lungs are clear. Heart size is normal. No pneumothorax or pleural effusion. There are left-sided mastectomy changes stable from prior. IMPRESSION: Negative exam. Electronically signed by Pete Thomas 02/19/2019 6:17 PM) <Benito Chaudhry - Last Filed: 02/19/19 19:05> - PLAN OF CARE/RESULTS Result Diagrams: 02/19/19 17:45 02/19/19 17:45 - REASSESSMENT Reassessment #1 Time Reassessed: 21:21 (assumed care @ S/O. Seen, examined. SOB since . Pt feels better, but on exam, decreased airflow. Sats drop to 91% off O2 while sitting in bed) - CONSULTS/PCP/HOSPITALIST Notification #1 *Consult/PCP/Hospitalist*: [place] Time Discussed: 21:23 Consult Disposition: Admit <Joseluis Higuera - Last Filed: 02/19/19 21:26> - PLAN OF CARE/RESULTS Progress/Plan/Lab Results: Vital Signs - 8 hr 02/19/19 17:31 02/19/19 18:39 Temperature 98.5 F Pulse Rate 97 H 92 H Respiratory Rate 18 28 H Blood Pressure 137/88 O2 Sat by Pulse Oximetry 93 L Laboratory Results - last 24 hr 02/19/19 02/19/19 02/19/19 17:45 17:45 17:45 WBC 8.48 RBC 4.80 Hgb 15.0 Hct 45.6 MCV 95.0 MCH 31.3 H MCHC 32.9 L RDW Std Deviation 14.8 H Plt Count 233 MPV 11.5 H Immature Gran % (Auto) 0.1 Neut % (Auto) 61.2 Lymph % (Auto) 22.9 [place] % (Auto) 14.4 H Eos % (Auto) 0.7 Baso % (Auto) 0.7 Immature Gran # (Auto) 0.01 Neut # (Auto) 5.19 Lymph # (Auto) 1.94 [place] # (Auto) 1.22 H Eos # (Auto) 0.06 Baso # (Auto) 0.06 PT INR PTT (Actin FS) Specimen Type Sample Site pH pCO2 pO2 HCO3 Base Excess Oxyhemoglobin ABG O2 Sat (Calculated) ABG O2 Saturation ABG Carboxyhemoglobin ABG Methemoglobin Edilberto Test A-a O2 Difference Total Hemoglobin Lactate Blood Gas Modality FiO2 % Sodium 143 Potassium 4.4 Chloride 105 Carbon Dioxide 25 Anion Gap 13 BUN 15 Creatinine 0.9 Estimated GFR/1.73 m2 > 60 BUN/Creatinine Ratio 17 Glucose 100 Calculated Osmolality 286 Calcium 9.5 Magnesium Total Bilirubin 0.20 AST 16 ALT 11 Alkaline Phosphatase 89 Creatine Kinase 138 Troponin T Ylg-T-Fzpbazugbsk Pept 93 Total Protein 7.6 Albumin 4.4 Globulin 3.0 Albumin/Globulin Ratio 1.0 02/19/19 02/19/19 02/19/19 17:45 17:45 17:45 WBC RBC Hgb Hct MCV MCH MCHC RDW Std Deviation Plt Count MPV Immature Gran % (Auto) Neut % (Auto) Lymph % (Auto) [place] % (Auto) Eos % (Auto) Baso % (Auto) Immature Gran # (Auto) Neut # (Auto) Lymph # (Auto) [place] # (Auto) Eos # (Auto) Baso # (Auto) PT 12.6 INR 0.90 PTT (Actin FS) 23.9 Specimen Type Sample Site pH pCO2 pO2 HCO3 Base Excess Oxyhemoglobin ABG O2 Sat (Calculated) ABG O2 Saturation ABG Carboxyhemoglobin ABG Methemoglobin Edilberto Test A-a O2 Difference Total Hemoglobin Lactate Blood Gas Modality FiO2 % Sodium Potassium Chloride Carbon Dioxide Anion Gap BUN Creatinine Estimated GFR/1.73 m2 BUN/Creatinine Ratio Glucose Calculated Osmolality Calcium Magnesium 2.1 Total Bilirubin AST ALT Alkaline Phosphatase Creatine Kinase Troponin T < 0.010 Upm-Q-Cejhmqfnzmk Pept Total Protein Albumin Globulin Albumin/Globulin Ratio 02/19/19 18:01 WBC RBC Hgb Hct MCV MCH MCHC RDW Std Deviation Plt Count MPV Immature Gran % (Auto) Neut % (Auto) Lymph % (Auto) [place] % (Auto) Eos % (Auto) Baso % (Auto) Immature Gran # (Auto) Neut # (Auto) Lymph # (Auto) [place] # (Auto) Eos # (Auto) Baso # (Auto) PT INR PTT (Actin FS) Specimen Type ARTERIAL Sample Site R RADIAL pH 7.46 H pCO2 35 pO2 54 L HCO3 25.8 Base Excess 1.5 Oxyhemoglobin 87.9 L* ABG O2 Sat (Calculated) 19.1 ABG O2 Saturation 92.3 L ABG Carboxyhemoglobin 4.20 H ABG Methemoglobin 0.7 Edilberto Test YES A-a O2 Difference 52.0 Total Hemoglobin 15.5 Lactate 0.70 Blood Gas Modality ROOM AIR FiO2 % 21.0 Sodium Potassium Chloride Carbon Dioxide Anion Gap BUN Creatinine Estimated GFR/1.73 m2 BUN/Creatinine Ratio Glucose Calculated Osmolality Calcium Magnesium Total Bilirubin AST ALT Alkaline Phosphatase Creatine Kinase Troponin T Ebm-A-Vzkaphssvss Pept Total Protein Albumin Globulin Albumin/Globulin Ratio Orders Category Date Time Status Cardiac Monitoring DIRECTED Care 02/19/19 17:36 Active Oxygen Therapy- ED Nursing DIRECTED Care 02/19/19 17:36 Active Saline Loc NOW Care 02/19/19 17:36 Active CHEST-2 VIEWS [RAD] Stat Exams 02/19/19 17:36 Completed ABG [RESP] Routine Lab 02/19/19 18:01 Completed CBC WITH ELECTRONIC DIFF [HEME] Stat Lab 02/19/19 17:45 Completed CK PROFILE [SP CHEM] Stat Lab 02/19/19 17:45 Completed COMPREHENSIVE METABOLIC PANEL [CHEM] Stat Lab 02/19/19 17:45 Completed MAGNESIUM [CHEM] Stat Lab 02/19/19 17:45 Completed PRO B-NATRIURETIC PEPTIDE Stat Lab 02/19/19 17:45 Completed PROTIME WITH INR [COAG] Stat Lab 02/19/19 17:45 Completed PTT [COAG] Stat Lab 02/19/19 17:45 Completed TROPONIN T Stat Lab 02/19/19 17:45 Completed Albuterol 2.5MG/Ipratrop 0.5MG [Duoneb (A & A)] Med 02/19/19 18:27 Discontinued 3 ml INH NOW ONE Methylprednisolone Sod Succ [Solu-Medrol] Med 02/19/19 18:27 Discontinued 125 mg IV STAT ONE Aerosol Treatments Routine Oth 02/19/19 18:27 Completed Aerosol Treatments Stat Oth 02/19/19 18:27 Completed CP/SOB/Palp >45 yrs of Age Stat Oth 02/19/19 17:36 Ordered EKG [EKG] Stat Ther 02/19/19 17:36 Draft Departure <Benito Chaudhry - Last Filed: 02/19/19 19:05> - Departure Date of Disposition Decision: 02/19/19 Time of Disposition Decision: 21:23 Certified Medical Emergency: Emergent - Critical Care Note This patient required my direct & personal management of CC.: No <Joseluis Higuera - Last Filed: 02/19/19 21:26> - Departure DIAGNOSIS: COPD exacerbation, Tobacco abuse disorder, Hypoxia Disposition: ADMITTED INPATIENT 09 Condition: Good Additional Freetext Instructions: ED Follow Up Instructions: You have been treated by a care provider in the Emergency Department. These instructions are being provided to you so you can have an understanding of how to care for yourself upon discharge. Upon discharge from the Emergency Department, you are responsible for making arrangements for follow-up care by a physician of your choice. Take all prescribed medications as directed. Return to the Emergency Department immediately for any new or worsening symptoms. You may call the Physician Referral phone number at [phone] to obtain a list of Physicians who are taking new patients. Referrals and Follow-Ups: Pete Silva Jr, MD [Primary Care Provider] - Attestation - Physician/ JACQUES Attestation Patient care was provided by Advanced Practice Provider:: No The physician spent face to face time with patient:: Yes Advanced Practice Provider documentation review:: Supervising physician onsite and consulted in the evaluation and care of this patient. The physician did have a face to face encounter with the patient. <Benito Chaudhry - Last Filed: 02/19/19 19:05> This chart was documented by the indicated scribe, (Zarina Oviedo Scribe) and accurately reflects the services I performed and decisions made by me, Benito Chaudhry MD, as attested by the provider's signature.
[2019-02-19] MEDS ORDERED: NICODERM PATCH TD ONE (21:28)
[2019-02-19] MEDS ORDERED: TYLENOL PO PRN (21:28)
[2019-02-19] MEDS ORDERED: ZOFRAN ODT PO PRN (21:28)
[2019-02-19] MEDS: DUONEB (A & A) INH SCH (23:54)
[2019-02-20] MEDS ORDERED: PNEUMOVAX 23 IM ONE (00:33)
[2019-02-20] MEDS ORDERED: FLU VACCINE IM ONE (00:33)
[2019-02-20] MEDS: SOLU-MEDROL IV SCH ×3 (02:23→18:32)
[2019-02-20] MEDS: DUONEB (A & A) INH SCH ×6 (04:37→23:17)
[2019-02-20] MEDS: ADVAIR 250/50 DISKUS INH SCH ×2 (08:30→19:21)
[2019-02-20] MEDS: COZAAR PO SCH (08:46)
[2019-02-20] MEDS: MEVACOR PO SCH (08:47)
[2019-02-20] MEDS: SINGULAIR PO SCH (08:47)
[2019-02-20] MEDS: NICODERM PATCH TD SCH (11:58)
--- NOTE | 2019-02-20 13:38 | HISTORY AND PHYSICAL ---
PRIMARY CARE PHYSICIAN: Dr. Pete Silva. CHIEF COMPLAINT: Cough, shortness of breath, and wheezing. HISTORY OF PRESENT ILLNESS: Ms. Lomas is a 53-year-old, female. She states she has been coughing, wheezing, having shortness of breath, night sweats, and chills since Wednesday or of this past week. 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 They were doing some cleaning at the store and she got into some dust. The patient does have a past medical history of COPD. The patient states that she realized that she did not need to be working around this dust and by the time she realized it, it was too late. She has been taking some hzga-yhw-wvuader medications and her breathing treatments several times a day, trying to get some relief at home. However, she has not been able to get any relief. The patient does also have hypertension, hypothyroidism, type 2 diabetes, and asthma. She does get very short-winded very easily. She also does smoke a half pack of cigarettes daily. She has been able to cut down on her smoking. She was smoking a pack and a half of cigarettes daily. She denies any other pertinent symptoms at this time. Looking back at the patient's records, the patient was in the hospital back in May for an exacerbation with her COPD. Upon auscultation, this patient does have some rales noted to the posterior upper lobes. The patient has been started on IV steroids and breathing treatments in the ER. Laboratory findings in the ER showed a pH of 7.46, CO2 of 35, PO2 of 54, oxyhemoglobin of 87.9, carboxyhemoglobin of 4.20, and O2 saturation of 92.3. Chest x-ray does show a negative exam. PAST MEDICAL HISTORY: 1. Left breast cancer, currently on tamoxifen. 2. Chronic obstructive pulmonary disease. 3. Diabetes mellitus. 4. Hyperlipidemia. 5. Hypertension. 6. Obstructive sleep apnea. 7. Hypothyroid. PAST SURGICAL HISTORY: Left mastectomy, partial hysterectomy, and bladder suspension. SOCIAL HISTORY: Patient states she smokes a half a pack of cigarettes a day. She denies any alcohol or illicit drug abuse. ALLERGIES: Penicillin. HOME MEDICATIONS: 1. Advair 250/50 one puff b.i.d. 2. Albuterol DuoNebs q.4 hours p.r.n. 3. Roflumilast 500 mcg p.o. at bedtime. 4. Levothyroxine 50 mcg p.o. daily. 5. Losartan 25 mg p.o. daily. 6. Lovastatin 40 mg p.o. daily. 7. Montelukast 10 mg p.o. daily. 8. Ropinirole HCL 1 mg p.o. at bedtime. REVIEW OF SYSTEMS: A 12 point review of systems has been obtained and all are negative except what is stated above in the HPI. PHYSICAL EXAMINATION: VITAL SIGNS: Temperature 98.1 degrees, pulse rate 88, respiratory rate 20, blood pressure 123/60, O2 saturation 96% on 2 L nasal cannula. Height 5 feet 6 inches, weight 207 pounds. GENERAL: This is a 53-year-old, female. She is sitting up in the hospital bed. She is in no acute distress at the present time. She is well nourished and well developed. HEENT: Atraumatic, normocephalic. Pupils equal, round, reactive to light. Sclerae are icteric. Mucous membranes are moist. NECK: Supple. No lymphadenopathy. Trachea is midline. No JVD. No thyromegaly. No bruits. CARDIOVASCULAR: Regular rate and rhythm. No gallops. No rubs. RESPIRATORY: Lung sounds are coarse. There is equal chest excursion. Respirations are minimally labored. There is minimal accessory muscle usage. GI: Abdomen is soft, nontender, nondistended. Bowel sounds are present x4. NEUROLOGIC: Cranial nerves 2-12 are intact. The patient is awake, alert, and oriented. She is able to follow all commands. MUSCULOSKELETAL: Full distal strength noted. No abnormalities. No deformities. EXTREMITIES: No clubbing, no cyanosis, no edema. DP and PT pulses are present and palpable. SKIN: Warm, dry, and intact. No rashes. No bruises. No diaphoresis. ASSESSMENT AND PLAN: 1. Chronic obstructive pulmonary disease exacerbation. We will admit this patient to the medical floor. We have started her on Solu-Medrol 60 mg intravenous every 8 hours. We have also started her on breathing treatments of albuterol every 4 hours. I placed her back on her Advair 250/50 twice a day. We have restarted all of her home medications. We will repeat her labs in the morning. We will provide her with oxygen as needed. She is on a regular diet. I will repeat her chest x-ray in the morning. She can be up as tolerated. Provide her with pulmonary toilet and do a steroid taper. 2. Hypertension. We have restarted her blood pressure medications. 3. Hyperthyroidism. We will restart her home Synthroid dose. I am going to check a TSH level on her. 4. Tobacco dependency. I provided her with smoking cessation information and provided her with a nicotine patch. 5. Deep venous thrombosis prophylaxis. I am going to place GIANA hose on this patient. 6. Gastrointestinal prophylaxis. I will start her on Prilosec daily. Our plan is that we have admitted this patient to the medical floor. We have started her on intravenous steroids. We have restarted all of her home medications. We have provided her oxygen as needed. We are going to do a steroid taper on her, provide her pulmonary toilet. We are giving her deep venous thrombosis prophylaxis and gastrointestinal prophylaxis. We are going to repeat labs and a chest x-ray in the morning. Provide her with smoking cessation information. All other further treatment pending hospital course and laboratory findings. Dictated by LUIS Samayoa for Juvenal Cuenca MD cc: MD Pete Lucas MD MTDD
[2019-02-20] MEDS: REQUIP PO SCH (21:04)
--- NOTE | 2019-02-21 01:39 | PROGRESS NOTE ---
DATE: 02/20/2019 SUBJECTIVE: The patient notes that she is feeling a lot better since coming to the ER and getting treated. She has been sick for approximately 4 days with cough and congestion, she was around some dust. She has had shortness of breath and wheezing. We are going to admit her to the hospital, treat her in usual fashion for COPD exacerbation, place her on steroids, breathing treatments, oxygen and we will follow. Please see full note. cc: Juvenal Cuenca MD
[2019-02-21] MEDS: SOLU-MEDROL IV SCH ×4 (02:09→20:36)
[2019-02-21] MEDS: DUONEB (A & A) INH SCH ×6 (02:51→22:49)
[2019-02-21] MEDS: SYNTHROID PO SCH (06:20)
[2019-02-21] MEDS: PRILOSEC PO SCH (06:20)
[2019-02-21 06:50] LABS: BASO# 0.02 X1000 (0.0-0.2); BASO% 0.1 % (0.0-0.8); EOS# 0.07 X1000 (0.0-0.7); EOS% 0.4 % (0.0-10.0); HEMATOCRIT 41.8 % (37.0-47.0); HEMOGLOBIN 13.4 g/dL (12.0-16.0); IMM GRAN# 0.04 X1000 (0.0-0.04); IMM GRAN% 0.2 % (0.0-0.5); LYMPH# 1.51 X1000 (1.2-3.4); LYMPH% 8.5 % (20.5-51.1); MCH 30.9 PG (27-31); MCHC 32.1 g/dL (33-37); MCV 96.3 FL (81-99); MONO# 0.98 X1000 (0.11-0.59); MONO% 5.5 % (1.7-9.3); MPV 11.5 FL (7.4-10.4); NEUT# 15.06 X1000 (1.4-6.5); NEUT% 85.3 % (42.2-75.2); PLT 244 X1000 (130-400); RBC 4.34 XMIL (4.2-5.4); RDW 14.8 % (11.5-14.5); WBC 17.68 X1000 (4.8-10.8)
[2019-02-21 07:03] LABS: AGAP 12; BUN 20 mg/dL (8-22); CALCIUM 9.1 mg/dL (8.8-10.2); CHLORIDE 107 mmol/L (98-107); COSMO 290; CREATININE 0.8 mg/dL (0.5-0.9); ESTIMATED GFR > 60; GLUCOSE 168 mg/dL (70-104); POTASSIUM 4.5 mmol/L (3.5-5.1); SODIUM 142 mmol/L (136-145); TCO2 23 mmol/L (25-35)
--- NOTE | 2019-02-21 07:04 | Diag Imaging Result Doc PS360 ---
CHEST-PORTABLE - 02/21/2019 INDICATION: dyspnea COMPARISON: 02/19/2019 FINDINGS: The lungs are normally expanded and clear. Heart size and mediastinal contours are normal. No pneumothorax or pleural effusion. IMPRESSION: Negative exam. Electronically signed by Pete Thomas 02/21/2019 7:01 AM
[2019-02-21] MEDS: ADVAIR 250/50 DISKUS INH SCH ×2 (07:32→19:26)
[2019-02-21 07:33] LABS: BANDS 5 % (0-1); LYMPHS 7 % (21-51); MONO 3 % (1-9); SEGS 85 % (42-75)
[2019-02-21 07:34] LABS: POIKILOCYTOSIS OCCASIONAL; STOMATOCYTES OCCASIONAL
[2019-02-21] MEDS: COZAAR PO SCH (08:55)
[2019-02-21] MEDS: SINGULAIR PO SCH (08:55)
[2019-02-21] MEDS: MEVACOR PO SCH (08:55)
[2019-02-21] MEDS: NICODERM PATCH TD SCH (08:55)
[2019-02-21] MEDS: MUCOMYST 20% INH SCH (19:25)
--- NOTE | 2019-02-21 19:43 | PROGRESS NOTE ---
DATE: 02/21/2019 SUBJECTIVE: The patient feels like she is breathing a little bit better, although she is still having some wheezing. OBJECTIVE: Vital Signs: Blood pressure is 104/55, heart rate of 97, respiratory rate of 16, temperature 97.9 degrees, 94% on room air. Cardiovascular: Regular rate and rhythm. Pulmonary: Bilateral breath sounds, clear to auscultation. GI: Soft, nontender, nondistended. Bowel sounds are positive. LABS: White count jumped up to 17, but she is on steroids. Basic was normal. PROBLEM LIST: 1. Chronic obstructive pulmonary disease exacerbation. We will continue treatment, which includes steroids, nebulizer treatments, and we will follow closely. I am going to wean her steroids today. 2. Hypothyroidism. We may have to adjust Synthroid dose based on free T4. DISPOSITION: I anticipate discharge soon, hopefully in the next 24 hours. cc: Jacky Brice MD
[2019-02-21] MEDS: REQUIP PO SCH (21:39)
[2019-02-21] MEDS: DALIRESP PO SCH (21:39)
[2019-02-22] MEDS: DUONEB (A & A) INH SCH ×6 (02:54→23:22)
[2019-02-22] MEDS: SOLU-MEDROL IV SCH ×2 (06:20→18:29)
[2019-02-22] MEDS: PRILOSEC PO SCH (06:20)
[2019-02-22] MEDS: SYNTHROID PO SCH (06:21)
[2019-02-22 07:17] LABS: BASO# 0.01 X1000 (0.0-0.2); BASO% 0.1 % (0.0-0.8); EOS# 0.05 X1000 (0.0-0.7); EOS% 0.3 % (0.0-10.0); HEMATOCRIT 43.5 % (37.0-47.0); HEMOGLOBIN 13.6 g/dL (12.0-16.0); IMM GRAN# 0.04 X1000 (0.0-0.04); IMM GRAN% 0.2 % (0.0-0.5); LYMPH# 2.07 X1000 (1.2-3.4); MCH 30.4 PG (27-31); MCHC 31.3 g/dL (33-37); MCV 97.1 FL (81-99); MONO# 1.09 X1000 (0.11-0.59); MONO% 5.8 % (1.7-9.3); MPV 11.8 FL (7.4-10.4); NEUT# 15.56 X1000 (1.4-6.5); NEUT% 82.6 % (42.2-75.2); PLT 264 X1000 (130-400); RBC 4.48 XMIL (4.2-5.4); RDW 14.9 % (11.5-14.5); WBC 18.82 X1000 (4.8-10.8)
[2019-02-22] MEDS ORDERED: ADVAIR 500/50 DISKUS INH SCH (07:30)
[2019-02-22] MEDS: MUCOMYST 20% INH SCH ×2 (07:42→19:24)
[2019-02-22] MEDS: ADVAIR 250/50 DISKUS INH SCH ×2 (07:42→19:24)
[2019-02-22 07:54] LABS: AGAP 12; BUN 20 mg/dL (8-22); CALCIUM 9.6 mg/dL (8.8-10.2); CHLORIDE 106 mmol/L (98-107); COSMO 289; CREATININE 0.8 mg/dL (0.5-0.9); ESTIMATED GFR > 60; GLUCOSE 158 mg/dL (70-104); POTASSIUM 4.3 mmol/L (3.5-5.1); SODIUM 142 mmol/L (136-145); TCO2 25 mmol/L (25-35)
[2019-02-22] MEDS: COZAAR PO SCH (09:54)
[2019-02-22] MEDS: SINGULAIR PO SCH (09:54)
[2019-02-22] MEDS: NICODERM PATCH TD SCH (09:54)
[2019-02-22] MEDS: MEVACOR PO SCH (09:54)
--- NOTE | 2019-02-22 22:14 | PROGRESS NOTE ---
DATE: 02/22/2019 SUBJECTIVE: Patient has no major complaints. Breathing is stable. Still wheezing, still some shortness of breath. OBJECTIVE: Blood pressure is 132/68, heart rate of 103, respiratory rate 16, temperature 98 degrees, saturation 94% on room air.Cardiovascular: Regular rate and rhythm. Pulmonary: Bilateral breath sounds. Clear to auscultation with some occasional rhonchi and wheezing. Gastrointestinal: Soft, nontender, nondistended. Bowel sounds were positive. LABORATORY DATA: White count of 18, hemoglobin and hematocrit 13 and 43, platelets 264. Basic was within normal limits. ASSESSMENT (BRIEF): 1. Acute chronic obstructive pulmonary disease exacerbation. We will continue to wean steroids and follow closely. Continue breathing treatment otherwise. 2. Hypothyroidism is stable. Continue regular medications and follow up. 3. Disposition: Anticipate discharge in the next 1 to 2 days. 4. Leukocytosis. She still has elevated leukocytosis, which is likely related to steroids. She is on low-dose Solu-Medrol. Will pursue CT scan to evaluate for other pathology and monitor closely. cc: Jacky Brice MD
[2019-02-22] MEDS: REQUIP PO SCH (23:09)
[2019-02-22] MEDS: DALIRESP PO SCH (23:09)
--- NOTE | 2019-02-23 01:42 | EKG Report ---
Test Performed on : 02/23/2019 01:13:00 AM Test Reason : CP Blood Pressure : / mmHG Vent. Rate : 086 BPM Atrial Rate : 086 BPM P-R Int : 116 ms QRS Dur : 092 ms QT Int : 380 ms P-R-T Axes : 066 052 074 degrees QTc Int : 454 ms Normal sinus rhythm. Normal ECG When compared with ECG of 19-FEB-2019 17:46, (Unconfirmed) Nonspecific T wave abnormality no longer evident in Inferior leads Unconfirmed Result
[2019-02-23] MEDS: DUONEB (A & A) INH SCH ×3 (03:11→11:49)
[2019-02-23] MEDS: SOLU-MEDROL IV SCH (05:46)
[2019-02-23] MEDS: PRILOSEC PO SCH ×2 (05:46→06:10)
[2019-02-23] MEDS: SYNTHROID PO SCH ×2 (05:46→06:10)
[2019-02-23 07:00] LABS: BASO# 0.01 X1000 (0.0-0.2); BASO% 0.1 % (0.0-0.8); EOS# 0.02 X1000 (0.0-0.7); EOS% 0.1 % (0.0-10.0); HEMOGLOBIN 13.9 g/dL (12.0-16.0); IMM GRAN# 0.06 X1000 (0.0-0.04); IMM GRAN% 0.4 % (0.0-0.5); LYMPH# 2.62 X1000 (1.2-3.4); MCH 30.5 PG (27-31); MCHC 31.6 g/dL (33-37); MCV 96.7 FL (81-99); MONO% 8.4 % (1.7-9.3); MPV 11.7 FL (7.4-10.4); NEUT# 11.41 X1000 (1.4-6.5); PLT 262 X1000 (130-400); RBC 4.55 XMIL (4.2-5.4); RDW 14.9 % (11.5-14.5); WBC 15.42 X1000 (4.8-10.8)
[2019-02-23] MEDS: MUCOMYST 20% INH SCH (07:54)
[2019-02-23] MEDS: ADVAIR 250/50 DISKUS INH SCH (08:06)
[2019-02-23 08:37] VITALS: BP 144/78
--- NOTE | 2019-02-23 09:19 | Diag Imaging Result Doc PS360 ---
EXAM: CT THORAX W/CONTRAST HISTORY: pneumonia TECHNIQUE: CT chest with intravenous contrast COMPARISON: None. FINDINGS: No pleural effusions. No thoracic aortic aneurysm or dissection. The heart is borderline mildly prominent. There are small mediastinal nodes measuring up to 17 mm. Mild emphysematous changes. There are tiny patchy infiltrates in the lower lungs. No consolidation. No air bronchograms. No bronchiectasis. There has been a left mastectomy. IMPRESSION: 1.Tiny patchy infiltrates 2.Mildly prominent heart and mediastinal nodes This exam was performed using automated exposure control, adjustment of mA or kV according to patient size, and/or use of iterative reconstruction technique. Electronically signed by Jose Ocasio 02/23/2019 9:17 AM
[2019-02-23] MEDS ORDERED: LEVAQUIN 750 MG/D5W 750 MG/150 ML IVPB IV ONE (10:41)
[2019-02-23] MEDS: NICODERM PATCH TD SCH (11:10)
[2019-02-23] MEDS: SINGULAIR PO SCH (11:10)
[2019-02-23] MEDS: MEVACOR PO SCH (11:10)
[2019-02-23] MEDS: COZAAR PO SCH (11:10)
--- NOTE | 2019-02-24 04:47 | DISCHARGE SUMMARY ---
ADMISSION DATE: 02/19/2019 DISCHARGE DATE: 02/23/2019 PRIMARY CARE PHYSICIAN: Dr. Pete Silva. ADMISSION DIAGNOSES: 1. An acute chronic obstructive pulmonary disease exacerbation. 2. Hypertension. 3. Hyperthyroidism. 4. Tobacco dependency. DISCHARGE DIAGNOSIS: 1. An acute chronic obstructive pulmonary disease exacerbation. 2. Hypertension. 3. Hyperthyroidism. 4. Tobacco dependency. SUMMARY OF FINDINGS: This is a 53-year-old female who had been coughing, wheezing, and had shortness of breath along with night sweats and chills that began on Wednesday or of the past week. 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 Is a half a pack a day cigarette smoker and had been smoking a pack a day but had recently cut back. She was found to have an exacerbation of chronic obstructive pulmonary disease and was admitted, placed on IV steroids, weaned to taper and breathing treatments of albuterol every 4 hours, oxygen as needed. We repeated her chest x-ray that continued to be negative. We did do a chest CT today that showed tiny patchy infiltrate and mildly prominent heart and mediastinal nodes. She was saturating 100% on room air so it was felt that she could safely be discharged home. DISCHARGE MEDICATIONS: Include levothyroxine 50 mcg tablet daily, losartan 50 mg p.o. daily, lovastatin 40 mg p.o. daily, montelukast sodium 10 mg p.o. daily and Daliresp 500 mcg p.o. at bedtime, Ropinirole 1 mg p.o. at bedtime, DuoNeb q.4 hours p.r.n., Advair 500/50 Diskus 1 inhalation daily, Levaquin 500 mg p.o. daily #7 with no refills and prednisone 10 mg p.o. daily #30 with no refills. FOLLOW-UP: She will need to follow up with her primary care physician in the next 1 to 2 weeks and call the office for an appointment. All discharge instructions were reviewed with the patient and she verbalized understanding. TIME SPENT: This is a 35 minute discharge. Dictated by LUIS Cardoso for Jacky Brice MD cc: LUIS Cardoso MD Joel A. Powell, MD MTDD
--- NOTE | 2019-02-24 05:52 | PROGRESS NOTE ---
DATE: 02/23/2019 The patient is breathing comfortably on the day of discharge. No oxygen requirement. Her chest CT showed some mild interstitial infiltrates, nonspecific. Her white count has finally come down to 15, from a peak of 18. She is breathing comfortably on room air. Anticipate discharge today. We will discharge her on Levaquin 500 daily for 7 days, prednisone taper, DuoNeb, and ropinirole. This is a [id number] encounter note with LUIS Cardoso. cc: Jacky Brice MD
== END 2019-02-23 15:00 | disposition home or self-care (01) | DRG 192 ==
LOC: P.ED 17:26 → SUATTDRO 23:13 → P.MEDSURG 23:13
PROVIDERS: ATTEND Internal Medicine